=== PATIENT | female | born 1940 | race Caucasian/White ===

== ENCOUNTER 2023-03-26 20:09 | Inpatient (IN) | payer OTHER, SELFPAY ==
[2023-03-26 20:25] VITALS: BP 101/47; PULSE 68; RESP 18; TEMP 36.6; O2SAT 99
[2023-03-26] MEDS: NALOXONE 0.4 MG/ML VIAL IV (21:39)
--- NOTE | 2023-03-26 21:49 | PC.NURSE ---
This nurse entered into patient room to perform admission questions. Patient apeared to be resting peacfully. This nurse made several attempts to waken patient, sternal rub was performed and no response was given from patient. Discussed Narcan for patient to attempt to awaken. Decision to narcan was made. Patient awoke quickly after IV medication was given. Patient was able to recite her name, and current year. Patient however did appear to be stunned looking all around the room at the staff members standing around her.
[2023-03-26 21:56] VITALS: BMI 21.3
--- NOTE | 2023-03-26 22:30 | PC.NURSE ---
Pt. admiited from [facility] via medic. Very sleepy & only opened her eyes for few minutes. When Ulysses admitting RN went to admit her she's not responding to verbal & tactile stimuli ie: vigorous sternal rub, coordinator Rubi RN also did not sternal rub. Admitting RN administered some Narcan. Bed alarm activated, reconciled her home medication through her list from [facility].
--- NOTE | 2023-03-26 23:31 | PM.HP.1 ---
History of Present Illness History of Present Illness Date Patient Seen: 03/26/23 Time Patient Seen: 23:32 Chief complaint: glf, hip fx Narrative: The pt is a 82 yo who has frequent falls at home who fell today , landing on her hip fracturing it. Trena was brought to [facility] for evaluation which I do not have the records available to me. Due to the fracture, she was transfered to our hospital for orthopedic repair. Dr. Silva, ortho is aware of the pt and will see in the AM, we are to keep pt NPO for possible surgery in the AM. The pt was obtunded during my exam and the nurses report that she has been very difficult to arouse since arrival. She is moving her extremities spontaneously but not responding to questions [facility] Social History household members: spouse Smoking Status: Never smoker alcohol intake: never Meds Home Medications and Allergies Home Medications Medication Instructions Recorded Confirmed Type amlodipine 5 mg tablet 5 mg PO DAILY 03/26/23 03/26/23 History aspirin 81 mg tablet 81 mg PO DAILY 03/26/23 03/26/23 History atenolol 25 mg tablet 25 mg PO DAILY 03/26/23 03/26/23 History atorvastatin 80 mg tablet 80 mg PO DAILY 03/26/23 03/26/23 History bupropion HCl 100 mg tablet,12 hr 100 mg PO DAILY 03/26/23 03/26/23 History sustained-release cholecalciferol (vitamin D3) 25 25 mcg PO DAILY 03/26/23 03/26/23 History mcg (1,000 unit) capsule gabapentin 300 mg capsule 300 mg PO TID 03/26/23 03/26/23 History levothyroxine 137 mcg tablet 137 mcg PO DAILY 03/26/23 03/26/23 History lisinopril 5 mg tablet 10 mg PO DAILY 03/26/23 03/26/23 History mirabegron 25 mg PO DAILY 03/26/23 03/26/23 History nitroglycerin 0.4 mg sublingual 0.4 mg sublingual [id number] PRN 03/26/23 03/26/23 History tablet angina oxybutynin chloride 5 mg tablet 5 mg PO DAILY 03/26/23 03/26/23 History tolterodine 1 mg tablet 1 - 2 mg PO BID 03/26/23 03/26/23 History venlafaxine 75 mg tablet 75 mg PO DAILY 03/26/23 03/26/23 History Allergies Allergy/AdvReac Type Severity Reaction Status Date / Time No Known Drug Allergies Allergy Verified 03/26/23 23:04 Exam Vital Signs (past 8 hours): - 03/26/23 20:25 Temperature 97.8 F Pulse Rate 68 Respiratory Rate 18 Blood Pressure 101/47 L Pulse Oximetry 99 Oxygen Flow Rate 2 Oxygen Flow Rate 2 Narrative Exam Narrative: Unresponsive, not verbal not following commands, Resp Other: on 2 lpm via facemask, SaO2-98%, clear breath sounds Cardio Rate: regular rate Rhythm: regular rhythm Skin General: no rashes or lesions noted Assessment & Plan Assessment and plan (1) Hip fracture, intertrochanteric: Status: Acute (2) Metabolic encephalopathy: Status: Acute (3) Falls frequently: Status: Acute (4) HTN (hypertension): Status: Acute Plan WIll admit to the hopsitalist service, IVFluids started, blood sugar is 89, labs pending but ordered, ortho to see the pt in the AM, will need PT/OT post OP plus probably placement. I do not have the records from the previous hospital and the nurse does not know if a CT head was performed, thus one will be ordered. Unknown what her baseline mental status is, re-evaluate in am.
[2023-03-27] VITALS (18 sets, daily range): BP systolic 100–161; BP diastolic 40–70; PULSE 59–75; RESP 10–20; TEMP 36.4–37.5; O2SAT 2–100; BMI 20.6
--- NOTE | 2023-03-27 | DI.RAD.S_ITS ---
PROCEDURE: XR HIP W PEL IF DONE RT 2V INDICATIONS: RT HIP HEMIARTHROPLASTY TECHNIQUE: Single intraoperative fluoroscopic image COMPARISON: None. FINDINGS: Intraoperative fluoroscopic image from right hip arthroplasty IMPRESSION: Intraprocedural fluoroscopy was provided for guidance and anatomical localization. Please see the procedure report for further details. Dictated by: Alexander Nugent M.D. on 03/28/2023 at 0:18 Approved by: Alexander Nugent M.D. on 03/28/2023 at 0:19
[2023-03-27] MEDS: SODIUM CHLORIDE 0.9% 1,000 ML 100 ML IV ×2 (00:06→16:05)
[2023-03-27] MEDS: ACETAMINOPHEN 325 MG TABLET 650 MG PO ×2 (05:03→12:48)
[2023-03-27] MEDS: PANTOPRAZOLE DR 20 MG TABLET PO (05:04)
[2023-03-27 05:48] LABS: Add Manual Diff / Slide Review NO; Basophils Absolute Auto 100 /uL (0-100); Basophils Percent Auto 0.9 % (0-2); Eosinophils Absolute Auto 200 /uL (0-450); Eosinophils Percent Auto 3.4 % (2-4); Hematocrit 29.4 % (36-46); Hemoglobin 9.8 g/dL (12.0-16.0); Lymphocytes Absolute Auto 1400 /uL (1100-4500); Lymphocytes Percent Auto 20.6 % (25-40); Mean Corpuscular HGB Conc 33.3 % (30-36); Mean Corpuscular Hemoglobin 31.5 PG (26-34); Mean Corpuscular Volume 94.7 fL (80-100); Monocytes Absolute Auto 400 /uL (0-900); Monocytes Percent Auto 5.3 % (3-14); Neutrophils Absolute Auto 4900 /uL (1500-7000); Neutrophils Percent Auto 69.8 % (50-75); Platelet Count 186 X10^3/uL (150-400); Red Cell Distribution Width 14.2 % (11.6-14.8)
[2023-03-27 05:59] LABS: BUN Creatinine Ratio 20.5 (6-22); Blood Urea Nitrogen 27 mg/dL (7-17); Calcium 9.2 mg/dL (8.4-10.2); Carbon Dioxide 28 mmol/L (22-32); Chloride 105 mmol/L (98-107); Estimated Glomerular Filt Rate 40 mL/min (>60); Glucose 86 mg/dL (80-110); HEMOLYSIS < 15 (0-50); Potassium 4.6 mmol/L (3.4-5.1); Sodium 135 mmol/L (137-145)
--- NOTE | 2023-03-27 08:38 | PM.PN.1 ---
Subjective Subjective Interval history: Called last night by transferring hospital regarding this patient. She has a valgus impacted right femoral neck fracture which will need to undergo replacement. She is not on any blood thinners so there is no reason from a bleeding perspective that we would need to delay her surgery. Per chart review my presumption is that this will be a hemiarthroplasty rather than a total hip arthroplasty. Operating room space is limited today so I am hopeful I will be able to find time to get this done today and will be by this hospital this afternoon in order to try to make that happen. If unable to move forward with it today I would then work to find time tomorrow. She should remain n.p.o. in the interim. Exam Vital Signs (past 8 hours): - 03/27/23 04:16 Temperature 98.4 F Pulse Rate 65 Respiratory Rate 18 Blood Pressure 112/40 L Pulse Oximetry 98 Oxygen Flow Rate 2 Oxygen Flow Rate 2 Objective Labs 03/27/23 05:15 03/27/23 05:15 Labs: Laboratory Results - last 24 hr 03/27/23 05:15 WBC 7.0 RBC 3.10 L Hgb 9.8 L Hct 29.4 L MCV 94.7 MCH 31.5 MCHC 33.3 RDW 14.2 Plt Count 186 Neut % (Auto) 69.8 Lymph % (Auto) 20.6 L [place] % (Auto) 5.3 Eos % (Auto) 3.4 Baso % (Auto) 0.9 Neut # (Auto) 4900 Lymph # (Auto) 1400 [place] # (Auto) 400 Eos # (Auto) 200 Baso # (Auto) 100 Sodium 135 L Potassium 4.6 Chloride 105 Carbon Dioxide 28 BUN 27 H Creatinine 1.32 H Estimated GFR 40 L BUN/Creatinine Ratio 20.5 Glucose 86 Calcium 9.2 PFSH Social History household members: spouse Smoking Status: Never smoker alcohol intake: never
--- NOTE | 2023-03-27 15:38 | PM.PN.1 ---
Subjective Subjective Interval history: Her confusion has much improved. Bedside nurse said she had some improvement after narcan and then it continued improving throughout the morning. She denies any significant pain, but is confused how she came to the hospital. Family states patient did have a stroke earlier this year. Exam Vital Signs (past 8 hours): - 03/27/23 08:00 03/27/23 09:45 03/27/23 10:21 Temperature 97.5 F L 97.5 F L Pulse Rate 59 L 59 L Respiratory Rate 16 16 Blood Pressure 105/43 L 105/43 L Pulse Oximetry 98 98 Oxygen Delivery Method Nasal Cannula Oxygen Flow Rate 2 2 Oxygen Delivery Method Nasal Cannula Oxygen Flow Rate 2 Narrative Exam Narrative: GEN: no acute distress, confused CV: bradycardic PULM: clear bilaterally ABD: soft, nontender Objective Labs 03/27/23 05:15 03/27/23 05:15 Labs: Laboratory Results - last 24 hr 03/27/23 05:15 WBC 7.0 RBC 3.10 L Hgb 9.8 L Hct 29.4 L MCV 94.7 MCH 31.5 MCHC 33.3 RDW 14.2 Plt Count 186 Neut % (Auto) 69.8 Lymph % (Auto) 20.6 L [place] % (Auto) 5.3 Eos % (Auto) 3.4 Baso % (Auto) 0.9 Neut # (Auto) 4900 Lymph # (Auto) 1400 [place] # (Auto) 400 Eos # (Auto) 200 Baso # (Auto) 100 Sodium 135 L Potassium 4.6 Chloride 105 Carbon Dioxide 28 BUN 27 H Creatinine 1.32 H Estimated GFR 40 L BUN/Creatinine Ratio 20.5 Glucose 86 Calcium 9.2 PFSH Social History household members: spouse Smoking Status: Never smoker alcohol intake: never Assessment & Plan Assessment and plan (1) Hip fracture, intertrochanteric: Status: Acute Plan: NPO for plan for hip repair today 03/27 ortho consulted (2) Metabolic encephalopathy: Status: Acute Plan: improving suspect secondary to pain medication effect as has improved after narcan careful with pain medications (3) Falls frequently: Status: Acute (4) HTN (hypertension): Status: Acute Plan: hold anti-hypertensives for now as patient blood pressure is slightly low ordered IVF bolus Plan History of CVA -continue aspirin and statin after surgery
[2023-03-27] MEDS: LACTATED RINGERS 1,000 ML 1000 ML IV ×2 (16:04→19:00)
--- NOTE | 2023-03-27 19:09 | SUR.HOLD ---
ATIFAR report to Dr Nixon
--- NOTE | 2023-03-27 19:19 | P.CONS_ITS ---
History of Present Illness Consult details Date Patient Seen: 03/27/23 Time Patient Seen: 19:19 Chief complaint: right femoral neck Narrative: Patient is seen this evening in the preoperative holding area. She is planned for a right hip hemiarthroplasty with me this evening. She fell yesterday. She lives on [address]. She lives independently, has a past medical history significant for coronary artery bypass grafting, walks with a cane, and lives with her . She had no antecedent pain. She is complaining of pain in the right hip which localizes to her groin. It is worsened by movement and partially alleviated by rest Meds Home Medications and Allergies Home Medications Medication Instructions Recorded Confirmed Type amlodipine 5 mg tablet 5 mg PO DAILY 03/26/23 03/26/23 History aspirin 81 mg tablet 81 mg PO DAILY 03/26/23 03/26/23 History atenolol 25 mg tablet 25 mg PO DAILY 03/26/23 03/26/23 History atorvastatin 80 mg tablet 80 mg PO DAILY 03/26/23 03/26/23 History bupropion HCl 100 mg tablet,12 hr 100 mg PO DAILY 03/26/23 03/26/23 History sustained-release cholecalciferol (vitamin D3) 25 25 mcg PO DAILY 03/26/23 03/26/23 History mcg (1,000 unit) capsule gabapentin 300 mg capsule 300 mg PO TID 03/26/23 03/26/23 History levothyroxine 137 mcg tablet 137 mcg PO DAILY 03/26/23 03/26/23 History lisinopril 5 mg tablet 10 mg PO DAILY 03/26/23 03/26/23 History mirabegron 25 mg PO DAILY 03/26/23 03/26/23 History nitroglycerin 0.4 mg sublingual 0.4 mg sublingual [id number] PRN 03/26/23 03/26/23 History tablet angina oxybutynin chloride 5 mg tablet 5 mg PO DAILY 03/26/23 03/26/23 History tolterodine 1 mg tablet 1 - 2 mg PO BID 03/26/23 03/26/23 History venlafaxine 75 mg tablet 75 mg PO DAILY 03/26/23 03/26/23 History Allergies Allergy/AdvReac Type Severity Reaction Status Date / Time No Known Drug Allergies Allergy Verified 03/26/23 23:04 Review of Systems Review of Systems ROS: Yes All systems reviewed with the patient and are negative except as otherwise documented Exam Vital Signs (past 8 hours): - 03/27/23 16:00 03/27/23 19:08 Temperature 97.6 F 97.8 F Pulse Rate 63 75 Respiratory Rate 16 16 Blood Pressure 118/52 L 132/63 Pulse Oximetry 94 93 Oxygen Delivery Method Oximask Oxygen Flow Rate 2 Oxygen Delivery Method Oximask Oxygen Flow Rate 2 Narrative Exam Narrative: Right lower extremity exam: Tender to palpation around the hip. Ecchymosis present around the hip. Sensation intact to light touch in L2 through S1 nerve distributions. Toes are warm and well perfused. Palpable DP pulse. Const General: cooperative Orientation: alert and awake HENMT Head: normal to inspection Ears: hearing grossly normal bilaterally Eyes General: appearance normal, both eyes and all related structures Neck Neck: normal visual inspection Resp Effort & Inspection: normal respiratory effort and able to speak in complete sentences Cardio Pulses: other (peripheral pulses present) Skin Lesions: no lesions Rashes: no rashes Neuro General: patient alert, patient awake and moves all extremities Psych Appearance: grossly normal Objective Imaging Right hip x-ray: My impression: Right hip radiographs were sent to me personally by the consulting physician from [facility]. This demonstrates a valgus impacted right femoral neck fracture. These images have not been pushed through to the [employer] PACS system however I have them personally Labs 03/27/23 05:15 03/27/23 05:15 Labs: Laboratory Results - last 24 hr 03/27/23 05:15 WBC 7.0 RBC 3.10 L Hgb 9.8 L Hct 29.4 L MCV 94.7 MCH 31.5 MCHC 33.3 RDW 14.2 Plt Count 186 Neut % (Auto) 69.8 Lymph % (Auto) 20.6 L [place] % (Auto) 5.3 Eos % (Auto) 3.4 Baso % (Auto) 0.9 Neut # (Auto) 4900 Lymph # (Auto) 1400 [place] # (Auto) 400 Eos # (Auto) 200 Baso # (Auto) 100 Sodium 135 L Potassium 4.6 Chloride 105 Carbon Dioxide 28 BUN 27 H Creatinine 1.32 H Estimated GFR 40 L BUN/Creatinine Ratio 20.5 Glucose 86 Calcium 9.2 PFSH Social History household members: spouse Tobacco & Substance Use Smoking Status: Never smoker alcohol intake: never Assessment & Plan Assessment and plan (1) Hip fracture, intertrochanteric: Status: Acute Plan 1. Right hip hemiarthroplasty with me today. Patient uses ambulatory aids and has a past medical history significant for myocardial infarction. I therefore believe she is appropriate for hemiarthroplasty. Additionally she has a history of a spine fusion and the large head of the hemiarthroplasty will provide greater stability then a total hip arthroplasty. 2. Plan for weight-bearing as tolerated postoperatively with aspirin DVT prophylaxis
[2023-03-27] MEDS: CEFAZOLIN 2 GM/100 ML PREMIX 100 ML IV ×2 (19:55→23:29)
--- NOTE | 2023-03-27 20:31 | SUR.OPER ---
Supine on padded [place] table with bilateral legs secured in padded positioning boots and suspended in positioning spars, operative leg in traction per surgeon. Head on one pillow. Arms secured on padded armboard <90 degrees abduction. Padded perineal post in place per surgeon.
[2023-03-27] MEDS: TRANEXAMIC ACID 1,000 MG VIAL 2000 MG INJ ×2 (20:51→21:42)
[2023-03-27] MEDS: EPINEPHrine 1 MG/ML TOP (21:17)
[2023-03-27] MEDS: ROPIVACAINE/EPI/CLONIDINE/KET 50 ML SYRINGE INJ (21:44)
--- NOTE | 2023-03-27 22:13 | P.OP_ITS ---
Operative Date/Time/Diagnoses Date of procedure: 03/27/23 Time of procedure: 16:30 Pre-op diagnosis: Displaced right femoral neck fracture Post-op diagnosis: same Procedure & Clinicians Procedure: Right hip hemiarthroplasty Same procedure as scheduled: Yes Surgeon: Roland Silva Click Yes if Unassisted: Yes Anesthesia Type: General and Local Operative Notes Findings: Right femoral neck fracture Prosthetic devices, grafts, tissues, transplants, or devices: Depuy Size 1 SO Cemented C Stem with 45 mm -3 Unipolar Head Estimated Blood Loss (mL): 200 Blood products transfused: none Procedure in detail: This 82-year-old female patient presented to an outside hospital with a displaced valgus impacted right femoral neck fracture. She was transferred here for definitive management. I met with the patient and discussed options. I felt that with her medical history significant for a coronary artery bypass grafting, her advanced age and frailty, and her use of ambulatory aids she was an appropriate candidate for a hemiarthroplasty. She was marked and informed consent was obtained prior to moving to the operating room. The images of the hip demonstrating the right femoral neck fracture had not been pushed to our system so when she was taken back to the operating room I had our fluoroscopy technicians obtain an AP pelvis demonstrating a femoral neck fracture on the right side so that we can ensure we were operating on the correct extremity. The consent stated that the right side was to be operated on, the right extremity was marked, she complained of pain in her right side, and the fluoroscopy images demonstrated a right-sided femoral neck fracture prior to the procedure beginning. Ancef and tranexamic acid were administered. A time-out procedure was performed verifying the correct patient operative site medications to be administered allergies and comorbidities. She was prepped and draped in the usual sterile fashion on the [place] table with her arms free and all bony prominences padded. A direct anterior approach to the hip was utilized. The TFL fascia was incised and opened with an Allis clamp. Cobra retractors were placed on the inferior and superior femoral neck. The lateral circumflex vessels were tensioned and coagulated. A capsulotomy was made being careful to protect the labrum. Tag stitches were placed and a soft tissue protector was placed over the tag stitches. The the retractors were placed intracapsularly and the capsular incision was extended down to the lesser trochanter. I estimated an appropriate neck cut and made a neck cut with a saw. The fracture fragments proximal to my cut site were removed and the femoral head was removed as well. The femoral head was measured at 45 mm. A head trial was introduced into the [place] acetabulum and was appropriate. All bony debris was removed. A [place] hook was placed in the lateral femur and used to elevate. A Hohmann retractor was placed over the greater trochanter and the lateral capsule was released over to the piriformis fossa with the hip in neutral flexion. While using the [place] hook to pull the greater trochanter out from behind the posterior wall I then rotated out to 90? and the foot was extended and adducted. Retractors were placed over the greater trochanter and the calcar. An additional release of the conjoined tendon was performed. The hip was externally rotated to 140? and elevated. Lynn and an opening broach and a rasp were used to gain access to the diaphys is. A size 1 broach for the C stem was placed and noted to have an appropriate fit. I placed a neutral head on the size 1 standard broach and removed all of the retractors and reduced the hip. At this time it was noted to be long on an AP pelvis as well as having excessive offset on the AP pelvis. I therefore planned to downsized to a-3 head and sink the stem in order to reduced both my offset and my length. Returning to the broaching position I replaced all the retractors and irrigated the canal. I placed a cement restrictor down to an appropriate depth. I again irrigated the canal. I placed epinephrine-soaked vaginal packing in the canal. I placed a whistle-tip catheter attached to suction down the canal as well. Cement was introduced and the catheter was removed. I digitally impacted the cement down the femur. I used a cement hemmer lockstitch to further pressurize the cement. The size 1 standard offset stem was placed in the cement and pushed down to the top line of the 3 lines on the stem in order to shorten our construct relative to our broach position. The cement was allowed to dry. A - 3 45 mm unipolar head was impacted onto a clean dry trunnion after it had been washed and dried. This was stable. All retractors were removed and the hip was reduced. The hip was maximally externally rotated and noted be stable. The hip was put in 45? of external rotation and dropped to the floor and likewise noted to be stable. Fluoroscopy was obtained demonstrating appropriate length and offset. AP hip fluoroscopy was obtained demonstrating an appropriate fit of the stem in the cement total. The wound was soaked in Betadine. A mixture of ropivacaine epinephrine clonidine and Toradol was infiltrated throughout the wound. The wound was closed using Vicryl Quill and Monocryl. Dermabond was applied an Aquacel dressing was applied over that. The patient was awoken from anesthesia after being transferred off of the [place] table and brought to the PACU where she awoke without complication. Post-operative Plan for aftercare: Weightbearing as tolerated Multimodal pain regimen Aspirin DVT prophylaxis Follow up outpatient in our clinic in 2 weeks for a wound check
--- NOTE | 2023-03-27 22:18 | SUR.PHASEI ---
See new order for IV Tylenol as pt did not receive 1800 dose and goal to avoid IV narcotics in PACU.
[2023-03-27] MEDS: ACETAMINOPHEN IV 1,000 MG/100 ML VIAL 400 MG IV (22:33)
[2023-03-27] MEDS: LACTATED RINGERS 1,000 ML 42 ML IV (22:37)
--- NOTE | 2023-03-27 23:04 | SUR.PHASEI ---
Pt transfered to room 219 in bed on 2L oxygen by this RN. Pupils remain reactive to light and un changed, viewed in SBAR handover with Letha CUELLAR. Pt, who remember my name, stated that oh my eyes always look different Neuro status unchanged.
--- NOTE | 2023-03-27 23:06 | SUR.PHASEI ---
2034 Noted that patient pupils slightly different in size with left greater than right. Both reactive to light direct and indirect. Pt evaluated by both Dr Nixon and Dr Curran. Pt with intact neuro status with smile, sticking out tongue, shoulder shrug, equal strength to hands, pt oriented to person and place, situation. No new orders at this time.
[2023-03-27] MEDS: LACTATED RINGERS 1,000 ML 100 ML IV (23:31)
[2023-03-28] VITALS (8 sets, daily range): BP systolic 102–138; BP diastolic 41–64; PULSE 62–75; RESP 16–18; TEMP 36.4–36.8; O2SAT 92–100
[2023-03-28] MEDS: PANTOPRAZOLE DR 20 MG TABLET PO (05:09)
[2023-03-28] MEDS: ACETAMINOPHEN 325 MG TABLET 650 MG PO ×4 (05:09→23:35)
--- NOTE | 2023-03-28 05:13 | CM.DANOTE ---
Initial DCP Assessment Note Pt is an 82 yo female, resident of [place], arrives after fall at home w/subsequent hip fx. Patient scheduled for hip repair with Dr Silva PCP: Unknown Payer: HARJIT GONZALES Met w/patient and her spouse at bedside to introduce self and role. Patient is A+Ox4, lives w.spouse, had been independent and active before recently having a stroke. Patent uses a cane or walker in the house, spouse drives. Three adult children live in [place] and are encouraging us to move closer to them. Patient says spouse is able to help with higher ADLs although he is getting more unsteady on his feet lately. No hx of HH or SNF. Reviewed the likelihood that therapies will recommend SNF after this hip repair, reviewed process for obtaining a SNF and requesting authorization from [facility] and patient/spouse stated understanding. Patient appreciative of the visit and would like to discuss discharge options further after surgery and once therapies make their recommendations. CM team will plan to follow closely for assessment of need and coordination for DCP. SCOTT Delgado Discharge Planning/Care Management CM Discharge Assessment Start: 03/27/23 16:01 Freq: Status: Active Protocol: Document 03/28/23 05:10 EVELINE (Rec: 03/28/23 05:13 EVELINE [id number]) Discharge Planning Assessment Assigned Companion SCOTT Thibodeaux DPOA/Assigned Designee Name Darrell Guevara spouse Contact Information [phone] Advance Directives? Yes Advance Directives on File No History Provided By Patient,Significant Other Prior Living Arrangements House Household Members spouse Type of transporation used prior to Relies on Others admit Independent with ADL's No: Prior CVA, spouse assists w/higher ADLs Is patient alert and oriented? Yes Needs Assistance With Meal Prep,Home Chores / Shopping Patient/Family Preference [facility] Facility Barriers to Discharge Yes Comment Patient is fragile at baseline , spouse also getting unsteady per patient report. Son flying in from [place] soon to support patient and spouse Discharge Plan [facility] Facility Additional Comment Anticipate SNF upon discharge, need to reassess needs s/p hip repair
[2023-03-28 06:10] LABS: Hematocrit 25.3 % (36-46); Hemoglobin 8.5 g/dL (12.0-16.0)
[2023-03-28] MEDS: CEFAZOLIN 2 GM/100 ML PREMIX 100 ML IV (06:21)
--- NOTE | 2023-03-28 07:31 | PM.PNPO.1 ---
Subjective Subjective Date Patient Seen: 03/28/23 Time Patient Seen: 07:32 Interval history: Patient states she was having some hallucinations last night and did not sleep well. Patient feeling better this morning. No nausea or vomiting. No fever or chills. Patient has her home to assist her. Exam Vital Signs (past 8 hours): - 03/27/23 23:35 03/28/23 00:00 03/28/23 00:05 Temperature Pulse Rate 68 63 Respiratory Rate Blood Pressure 139/55 L 138/56 L Pulse Oximetry 100 96 Oxygen Delivery Method Nasal Cannula Oxygen Flow Rate 0 0 03/28/23 01:05 03/28/23 03:00 Temperature 98.3 F Pulse Rate 62 66 Respiratory Rate 17 17 Blood Pressure 102/52 L 103/44 L Pulse Oximetry 98 100 Oxygen Delivery Method Oxygen Flow Rate 2 2 Oxygen Delivery Method Nasal Cannula Oxygen Flow Rate 2 Narrative Exam Narrative: 82-year-old female resting comfortably in bed in no apparent distress. Dressing is clean, dry and intact. Motor functions intact bilateral lower extremities. Sensation grossly intact to light touch bilateral lower extremities. Const General: cooperative and comfortable Orientation: alert and oriented x3 Resp Effort & Inspection: normal respiratory effort and able to speak in complete sentences Objective Labs 03/28/23 05:00 03/27/23 05:15 Labs: Laboratory Results - last 24 hr 03/28/23 05:00 Hgb 8.5 L Hct 25.3 L PFSH Social History household members: spouse Smoking Status: Never smoker alcohol intake: never Assessment & Plan Post-op Postoperative Procedures: Procedures Operation Date: 03/27/23 22:15 Actual Procedure Side Surgeon p Hip Hemiarthroplasty Right Roland Silva MD Postoperative day: 1 Postoperative status: doing well and anemia Postoperative status narrative: Stable status post right hip hemiarthroplasty Anemia due to acute blood loss during surgery Postoperative plan: routine post-op care Postoperative plan narrative: Mobilize with physical therapy, weight-bearing as tolerated Multimodal pain management Aspirin for DVT prophylaxis Follow up ortho 2 weeks for wound check Disposition likely home today or tomorrow
[2023-03-28] MEDS: DOCUSATE 100 MG CAPSULE PO ×2 (09:36→21:11)
[2023-03-28] MEDS: VENLAFAXINE 37.5 MG TABLET 75 MG PO (09:36)
[2023-03-28] MEDS: ASPIRIN EC 81 MG TABLET PO ×2 (09:36→21:11)
[2023-03-28] MEDS: LEVOTHYROXINE 137 MCG TABLET PO (09:36)
[2023-03-28] MEDS: ATORVASTATIN 20 MG TABLET 80 MG PO (09:36)
[2023-03-28] MEDS: buPROPion SR 100 MG TAB PO (09:36)
[2023-03-28] MEDS: ENOXAPARIN 30 MG/0.3 ML SYRINGE SUBCUT (09:36)
--- NOTE | 2023-03-28 11:21 | PT.IIE ---
Current Diagnoses Metabolic encephalopathy (03/26/23) Essential (primary) hypertension (03/26/23) Repeated falls (03/26/23) Displaced intertrochanteric fracture of unspecified femur, initial encounter for closed fracture (03/26/23) Surgery Performed Operation Date: 03/27/23 22:15 Actual Procedures p Hip Hemiarthroplasty(Right) - Roland Silva MD Physical Therapy Inpatient Evaluation/Re-Eval M1 PT/OT-IP Prior Functional Status Start: 03/28/23 08:15 Freq: NEEDED Status: Active Protocol: Document 03/28/23 10:55 MB (Rec: 03/28/23 11:21 MB [id number]) Medical Review Prior Functional Status Medical History Reviewed Yes Diet/Fluid Consistency Regular Communication Unsure how pt's baseline communication is, she is somewhat confused on the eval Mobility and Gait Unclear, pt states she used cane and walker Activities of Daily Living and IADL's Unclear if pt's spouse assisted her at baseline or not Social History Household Members spouse Living Arrangements House Number of Floors (Floors) One Floor Number of Stairs To Enter/Railing? Unclear, it appears that there are at least a couple of steps and rail to enter home Home Equipment Front Wheel Walker,Four Wheel Walker,Straight Cane Employment Status Retired Additional Social History Comment Pt is not an accurate historian and so unclear if PLOF is accurate M2 PT-IP Current Condition Start: 03/28/23 08:15 Freq: NEEDED Status: Active Protocol: Document 03/28/23 10:55 MB (Rec: 03/28/23 11:21 MB [id number]) Physical Therapy Current Condition Current Condition Evaluation Date 03/28/23 Treatment Diagnosis GLF, right femoral neck fracture s/p anterior hemiarthroplasty Onset Date 03/27/23 M3 PT-IP Subjective Start: 03/28/23 08:15 Freq: NEEDED Status: Active Protocol: Document 03/28/23 10:55 MB (Rec: 03/28/23 11:21 MB [id number]) Subjective Physical Therapy Visit Type Type Initial Evaluation Visit Start Time 10:15 Visit Stop Time 10:55 Total Visit Minutes 40 Number of LUBRICATION WORKER Visits 0 Physical Therapy Visit Comments Patient Comments I didn't sleep last night. I had a horror film going through my mind. Therapy Pain Assessment Pain When Pain Assessed At Rest Pain Present Pain Present Pain Reported Location Right Hip Intensity 4 Scale Used Mcfadden-Barr (Faces) Description Acute Pain Behaviors Guarding Pain Management Techniques Modification of Treatment,Re- positioning M4 PT-IP Mobility and Gait Start: 03/28/23 08:15 Freq: NEEDED Status: Active Protocol: Document 03/28/23 10:55 MB (Rec: 03/28/23 11:21 MB [id number]) PT-Bed Mobility Assessment Rolling Type of Rolling Roll to Right Level of Assist Minimal Assistance,1 Person Assistance Supine to Sit Supine to Sit Moderate Assistance,1 Person Assistance,Head of Bed Elevated,Bedrails Sit to Supine Sit to Supine Maximum Assistance,1 Person Assistance,Head of Bed Elevated,Bedrails Scooting Scooting to Edge of Bed Contact Guard Assistance PT-Transfer Assessment Sit to and From Stand Sit to and from Stand Minimal Assistance,1 Person Assistance,Use of Upper Extremities Equipment Transfer Assistive Device Gait Belt,Front Wheeled Walker Orthotic/Prosthetic Devices or Brace: No Comments Mobility Comments Pt presents with confusion this morning and when sitting back down on the bed, asks if she is sitting on a bar and points to right hip. She requires cues and assistance for bed mobility. Surgeon enters during treatment to check right surgical wound and it has some bleeding and surgical PA to address later. Surgeon confirms anterior hip precautions and states that if pt cannot remember, it is not a big concern for her progression and mobility. Pt is having cognitive challenges this a.m. Gait Assessment Gait Gait Assistance Required: Moderate Assistance,1 Person Assist Distance (Feet) 2 Able to Maintain Weight Bearing Status Yes During Gait Assistive Devices Assistive Device Gait Belt,Standard Walker Orthotic/Prosthetic Devices or Brace: No Gait Deviations General Gait Pattern Antalgic,Decreased Stride Length,Decreased Feet Clearance,Flexed Trunk Factors Limiting Gait Function Factors Limiting Gait Function Decreased Activity Tolerance, Decreased Strength,Difficulty Following Directions,Limited Range of Motion,Pain,Poor Balance,Poor Safety Awareness Comments Gait Comments Pt takes a few steps to the right with PT with SW and PT must assist with moving the walker. PT obtains RW for the room after assessment. PT-Balance Assessment Sitting Balance and Reactions Static Sitting Balance Ability Fair Dynamic Sitting Balance Ability Fair Standing Balance and Reactions Static Standing Balance Ability Fair Dynamic Standing Balance Ability Fair Device Used SW M5 PT-IP Objective Assessments Start: 03/28/23 08:15 Freq: NEEDED Status: Active Protocol: Document 03/28/23 10:55 MB (Rec: 03/28/23 11:21 MB [id number]) Orientation Orientation/Cognition Level of Alertness Confusional State Orientation Name,Age,Birthday,Month,Year, Place,Situation Language Function Ability No Deficits Noted Safety Awareness Decreased Safety Awareness Memory Description Short Term Impaired,Detention Impaired Gross Range of Motion Upper Extremity ROM Impairments Defer to OT Lower Extremity ROM Assessment Right Impaired Impairments Pt does not follow right LE range and strength testing commands Strength Lower Extremity Strength Assessment Right Impaired Comments Strength Comments Pt with functional weakness right LE and she does not follow testing commands today. She is able to stand and take a few side steps with assistance on eval Sensation Assessment Sensation Gross Sensation WNL Comments Sensation Comments Pt cannot tolerate formal testing Muscle Tone Muscle Tone WNL Yes M6 PT-IP Treatment Start: 03/28/23 08:15 Freq: NEEDED Status: Active Protocol: Document 03/28/23 10:55 MB (Rec: 03/28/23 11:21 MB [id number]) Physical Therapy Treatment Education Education Provided Precautions,Weight Bearing Status,Post-Op Packet,Safety Other Treatments Other Treatment Performed PT attempts to educate pt in precautions and she has trouble understanding them today. Focused on mobility this a.m. and getting pt back into bed to rest and for PA to address her surgical dressing . BP does not drop with mobility and she presents with the following BP and HR in right UE: supine 109/47, 65; sitting 118/53, 74; sitting again after standing 124/49, 75. Pt reports some dizziness but she cannot describe further and cannot understand PT education about this. Her O2 sats do not read accurately with pulse ox on toe (note that IVCC booties also on both limbs). Pt is on 1L O2 and she has no THURSTON. M7 PT-IP Assessment and Plan Start: 03/28/23 08:15 Freq: NEEDED Status: Active Protocol: Document 03/28/23 10:55 MB (Rec: 03/28/23 11:21 MB [id number]) PT Summary Assessment and Plan Potential Rehabilitation Potential Good Status of Condition at Evaluation Evolving Summary Impairments Pain,ROM,Strength,Balance, Cognition,Bed Mobility, Transfers,Gait,Activity Tolerance Progress Towards Goals Slow Progress due to Activity Tolerance Assessment Summary Pt is a pleasant lady who is participatory despite cognitive challenges today. She is not able to express her symptoms of dizziness well when she tries and her BP does not drop when PT checks it. She does not c/o pain but communicates sitting on a bar when getting back into bed: she has decreased recall of the hip fracture and surgery despite education and surgeon visit during treatment. Surgical wound has some bleeding and surgical PA to address later. Surgeon confirms anterior hip precautions and states that if pt cannot remember, it is not a big concern for her progression and mobility. Pt requires assistance for all mobility tasks and will benefit from PT to improve bed mobility, transfers and gait. Unsure how much help her elderly spouse is able to provide at home and so will recommend d/c to SNF at this time. Goals Bed Mobility Goal Standby Assistance Transfer Goal Standby Assistance,Front Wheeled Walker Gait Goal Standby Assistance,Front Wheel Walker Gait Distance 100 Other Goals Pt will ascend and descend at least 3 steps with rail and no more than SBA to allow home entrance. Days to Meet Goals 5 Frequency of Treatment Frequency Of Treatment Twice a Day Treatment Plan Physical Therapy Treatment Plan Bed Mobility Training,Transfer Training,Gait Training, Therapeutic Exercise,Balance Retraining,Post Op Education, Discharge Planning,Hot or Cold Pack Precautions Anterior Hip Precautions No Hip Extension,No Hip External Rotation Weight Bearing Status Weight Bearing Status Weight Bear as Tolerated Recommendations To Nursing Amount of Assist Needed 1 Person Assist Discharge Recommendations PT Discharge Recommendations SNF Rehab Transportation Needs at Discharge Wheelchair/Cabulance
--- NOTE | 2023-03-28 11:59 | PM.PN.1 ---
Subjective Subjective Interval history: Some hallucinations over night. No chest pain or dyspnea. Some hip pain. Exam Vital Signs (past 8 hours): - 03/28/23 09:04 Temperature 98.3 F Pulse Rate 62 Respiratory Rate 16 Blood Pressure 105/53 L Pulse Oximetry 95 Oxygen Flow Rate 2 Oxygen Delivery Method Nasal Cannula Oxygen Flow Rate 2 Narrative Exam Narrative: NAD, anxious. Lungs clear with normal effort CV RRR without M/G/R Abdomen Soft, NT/ND No rash No leg edema Objective Labs 03/28/23 05:00 03/27/23 05:15 Labs: Laboratory Results - last 24 hr 03/28/23 05:00 Hgb 8.5 L Hct 25.3 L PFSH Social History household members: spouse Smoking Status: Never smoker alcohol intake: never Assessment & Plan Assessment & Plan narrative: 1) Right Hip fracture, intertrochanteric, POA: Status: Acute -s/p ORIF, PT today. Discharge planning. ortho consulted (2) Metabolic encephalopathy, POA and improving: -suspect secondary to pain medication effect as has improved after narcan -minimize pain medications (3) Falls frequently: Status: Acute (4) HTN (hypertension), POA: Status: Acute Plan: hold anti-hypertensives for now as patient blood pressure is slightly low resume BP medications as able. (5) Chronic vertigo, POA (6) Chronic Vertigo, POA Plan History of CVA -continue aspirin and statin after surgery -PT/OT -SNF planning. Met with . Time Spent With Patient Time with patient: 30 to 49 minutes with 50% spent counseling/coordinating care
--- NOTE | 2023-03-28 12:45 | OT.IP.EVAL ---
Current Diagnoses Metabolic encephalopathy (03/26/23) Essential (primary) hypertension (03/26/23) Repeated falls (03/26/23) Displaced intertrochanteric fracture of unspecified femur, initial encounter for closed fracture (03/26/23) Surgery Performed Operation Date: 03/27/23 22:15 Actual Procedures p Hip Hemiarthroplasty(Right) - Roland Silva MD Occupational Therapy Inpatient Evaluation/Re-Eval M1 PT/OT-IP Prior Functional Status Start: 03/28/23 16:43 Freq: NEEDED Status: Active Protocol: Document 03/28/23 11:45 [facility] (Rec: 03/28/23 17:03 [facility] [id number]) Medical Review Prior Functional Status Medical History Reviewed Yes Diet/Fluid Consistency Regular Communication Pt's states pt is a bit forgetful at times and that she does all the IADL needs, Mobility and Gait Unclear, pt states she used cane and walker Activities of Daily Living and IADL's Pt's does all the IADL needs. Social History Household Members spouse Living Arrangements House Number of Floors (Floors) One Floor Number of Stairs To Enter/Railing? 3 steps with left rail Home Environment Walk in Shower Home Equipment Front Wheel Walker,Straight Cane,Hand Held Shower,Grab Bars In Shower Employment Status Retired Additional Social History Comment Pt and her state there son wants them to move to [place] to be closer to him. M2 OT-IP Current Condition Start: 03/28/23 16:43 Freq: Status: Active Protocol: Document 03/28/23 11:45 [facility] (Rec: 03/28/23 17:03 [facility] [id number]) Occupational Therapy Current Condition Current Condition Evaluation Date 03/28/23 Treatment Diagnosis S/P R FEDE Diagnosis Onset Date 03/27/23 Post Operative Precautions Anterior Hip Precautions No Hip Extension,No Hip External Rotation Other Precautions Per surgeon told PT that if is not a big deal if the pt is unable to remember her anterior precautions. Weight Bearing Status Weight Bearing Status Weight Bear as Tolerated M3 OT- IP Subjective and Pain Start: 03/28/23 16:43 Freq: Status: Active Protocol: Document 03/28/23 11:45 [facility] (Rec: 03/28/23 17:03 [facility] [id number]) OT- Subjective Occupational Therapy Visit Type Type Initial Evaluation Visit Start Time 11:45 Visit Stop Time 12:45 Total Visit Minutes 60 Occupational Therapy Visit Comments Patient Comments Pt agreed to get up. Patient/Caregiver Goals To go home OT Pain Assessment Pain When Pain Assessed At Rest Pain Present Pain Present Denied Pain M4 OT- IP ADL's Start: 03/28/23 16:43 Freq: Status: Active Protocol: Document 03/28/23 11:45 [facility] (Rec: 03/28/23 17:03 [facility] [id number]) OT [id number] General Evaluation Self-Feeding Ability Independent OT ADL-Grooming Comments OT Grooming Comments NOt performed. OT ADL-Oral Care Comments Oral Care Comments Not performed. OT ADL-Dressing General Eval Lower Body Dressing Ability Moderate Assistance Comments OT Dressing Comments Assist to help caro her right sock. OT ADL-Toileting Comments OT Toileting Comments Pt not having to use the bathroom at this time. OT ADL-Bathing Comments OT Bathing Comments Pt would benefit from a shower chair. M5 OT- IP IADL's Start: 03/28/23 16:43 Freq: Status: Active Protocol: Document 03/28/23 11:45 [facility] (Rec: 03/28/23 17:03 [facility] [id number]) OT-Instrumental Activities of Daily Living Deficits IADL Deficits Identified Deficits Home Safety Awareness Awareness of Need for Assistance at Home Decreased Awareness Medication Management Medication Management Caregiver Administers Money Management Money Management Caregiver Provides Assistance Meal Preparation Meal Preparation Caregiver Provides Assist Slitting Machine Operator Helper Slitting Machine Operator Helper Caregiver Provides Assist M6 OT- IP Functional Cognition Start: 03/28/23 16:43 Freq: Status: Active Protocol: Document 03/28/23 11:45 [facility] (Rec: 03/28/23 17:03 [facility] [id number]) Cognitive Factors Limiting Selfcare Function Cognitive Ability Level of Alertness Alert Patient Orientation Name,Place,Situation Attention Span Ability Capable of Focused Attention, Capable of Sustained Attention Ability to Follow Commands Able to Follow One Step Commands with Increased Time, Able to Follow One Step Commands with Repetition Memory Description Short Term Impaired Safety Awareness Decreased Recall of Precautions,Decreased Ability to Apply Precautions, Underestimates Need for Assistance Cognitive Comments Cognitive Assessment Comments Pt not aware of her hip precautions. Pt needing simple cues to follow. Pt needing cues for FWW safety. OT- Vision and Hearing OT- Vision Assessment Visual Acuity Glasses All The Time M7 OT- IP Mobility and Balance Start: 03/28/23 16:43 Freq: Status: Active Protocol: Document 03/28/23 11:45 [facility] (Rec: 03/28/23 17:03 [facility] [id number]) OT- Bed Mobility Assessment Supine to Sit Supine to Sit Assist Minimal Assistance OT-Transfer Assessment Sit to and From Stand Sit to and from Stand Contact Guard Assistance Transfers Transfer Ability Contact Guard Assistance Technique Transfer Destination Bed,Chair Transfer Technique Stand Step Pivot Devices Transfer Assistive Devices Gait Belt,Front Wheeled Walker Comments Mobility Comments LUIS to assist to get her RLE out of the bed. CGA to stand , vc to push up from the bed versus grab the FWW to stand. CGA to walk to the recliner with FWW. OT- Balance Assessment Sitting Balance and Reactions Static Sitting Balance Ability Good Dynamic Sitting Balance Ability Fair Standing Balance and Reactions Static Standing Balance Ability Fair Dynamic Standing Balance Ability Fair M8 OT- IP Objective Assessments Start: 03/28/23 16:43 Freq: Status: Active Protocol: Document 03/28/23 11:45 [facility] (Rec: 03/28/23 17:03 [facility] [id number]) OT Gross Range of Motion Upper Extremity Range of Motion ROM Impairments WFL for ADl and mobility needs . OT Strength Comments Strength Comments WFl for age and lifestyle M9 OT- IP Assessment and Plan Start: 03/28/23 16:43 Freq: Status: Active Protocol: Document 03/28/23 11:45 [facility] (Rec: 03/28/23 17:03 [facility] [id number]) OT Summary Assessment and Plan Potential Rehabilitation Potential Good Analytic Complexity at Evaluation Moderate Summary OT Impairments Pain,Strength,Balance, Functional Cognition, Functional Mobility,Grooming, Dressing,Toileting,Bathing, Toilet Transfers,Shower Transfers,Activity Tolerance Progress Towards Goals Progressing Toward Goals,Slow Progress due to Activity Tolerance,Slow Progress due to Cognition Assessment Summary Pt MOD complexity and main barriers are steps, pt's unsteady on his feet and almost lost his balance while standing up from the recliner, and decreased balance and activity tolerance . Pt on 2L of O2 but reading not accurate, nursing aware. Per pt has had recent falls. In would be best for pt to go to skilled rehab for a short stay prior to going home . Goals Self-Feeding Goal Independent Grooming Goal Independent Dressing Goal Independent Toileting Goal Independent Bathing Goal Independent Toilet Transfer Goal Independent Shower Transfer Goal Independent Days to Meet Goals 10 Frequency of Treatment Frequency Of Treatment Once a Day Treatment Plan OT Treatment Plan ADL Training,Functional Cognition Training,Functional Mobility,Patient/Family Education,Discharge Planning Other Treatment Recommendations and Next LB dressing/shower Treatment Focus Discharge Recommendations OT Discharge Recommendations SNF Rehab Home Equipment Needs shower chair, BSC, LB dressing equipment Transportation Needs at Discharge Wheelchair/Cabulance
--- NOTE | 2023-03-28 14:28 | CM.DPC ---
DCP Cont. Reviewed EMR and team rounds for status updates. Plan for d/c continues to be SNF. Clarify pt/family preference for which facility. PASSAR not yet completed. [employer] Medicare is insurance. DCP to continue to coordinate for rehab placement.
--- NOTE | 2023-03-28 15:50 | PT.IPTN ---
Current Diagnoses Metabolic encephalopathy (03/26/23) Essential (primary) hypertension (03/26/23) Repeated falls (03/26/23) Displaced intertrochanteric fracture of unspecified femur, initial encounter for closed fracture (03/26/23) Surgery Performed Operation Date: 03/27/23 22:15 Actual Procedures p Hip Hemiarthroplasty(Right) - Roland Silva MD Physical Therapy Treatment Note M2 PT-IP Current Condition Start: 03/28/23 08:15 Freq: NEEDED Status: Active Protocol: Document 03/28/23 10:55 MB (Rec: 03/28/23 11:21 MB [id number]) Physical Therapy Current Condition Current Condition Evaluation Date 03/28/23 Treatment Diagnosis GLF, right femoral neck fracture s/p anterior hemiarthroplasty Onset Date 03/27/23 M3 PT-IP Subjective Start: 03/28/23 08:15 Freq: NEEDED Status: Active Protocol: Document 03/28/23 16:27 TS (Rec: 03/28/23 16:50 TS [id number]) Subjective Physical Therapy Visit Type Type Treatment Note Visit Start Time 15:50 Visit Stop Time 16:25 Total Visit Minutes 35 Notes Spouse present. Number of MEDICAL CENTER MANAGER Visits 1 Physical Therapy Visit Comments Patient Comments Pt is somewhat confused, is tangential, reports she is feeling better this afternoon, is agreeable to PT. Therapy Pain Assessment Pain When Pain Assessed At Rest Pain Present Pain Present Pain Reported M4 PT-IP Mobility and Gait Start: 03/28/23 08:15 Freq: NEEDED Status: Active Protocol: Document 03/28/23 16:27 TS (Rec: 03/28/23 16:50 TS [id number]) PT-Bed Mobility Assessment Supine to Sit Supine to Sit Minimal Assistance,1 Person Assistance,Head of Bed Elevated Scooting Scooting to Edge of Bed Contact Guard Assistance PT-Transfer Assessment Sit to and From Stand Sit to and from Stand Contact Guard Assistance,1 Person Assistance,Use of Upper Extremities Equipment Transfer Assistive Device Gait Belt,Front Wheeled Walker Orthotic/Prosthetic Devices or Brace: No Comments Mobility Comments Pt found resting in bed, agreeable to PT. Supine to sit Neetu with HOB elevated and BUE support to upright trunk. She scooted to EOB CGA with cues for feet flat on floor, pt was impulsive to stand once sitting EOB, required cues to stay seated. Sit to stand with BUE support on FWW CGA, pt has good standing balance with no retroleaning. She ambulated ~100' CGA with FWW with a step to gait, pt reported feeling fatigue after ~60' of gait, pt requested to sit in chair. She denied any dizziness or lightheadedness. Pt was left in chair with nursing removing catheter. Gait Assessment Gait Gait Assistance Required: Moderate Assistance,1 Person Assist Distance (Feet) 100 Able to Maintain Weight Bearing Status Yes During Gait Assistive Devices Assistive Device Gait Belt,Standard Walker Orthotic/Prosthetic Devices or Brace: No Gait Deviations General Gait Pattern Antalgic,Decreased Stride Length,Decreased Feet Clearance,Flexed Trunk Factors Limiting Gait Function Factors Limiting Gait Function Decreased Activity Tolerance, Decreased Strength,Difficulty Following Directions,Limited Range of Motion,Pain,Poor Balance,Poor Safety Awareness Comments Gait Comments See mobility comments. PT-Balance Assessment Sitting Balance and Reactions Static Sitting Balance Ability Good Dynamic Sitting Balance Ability Fair Standing Balance and Reactions Static Standing Balance Ability Good Dynamic Standing Balance Ability Fair Device Used FWW M5 PT-IP Objective Assessments Start: 03/28/23 08:15 Freq: NEEDED Status: Active Protocol: Document 03/28/23 10:55 MB (Rec: 03/28/23 11:21 MB [id number]) Orientation Orientation/Cognition Level of Alertness Confusional State Orientation Name,Age,Birthday,Month,Year, Place,Situation Language Function Ability No Deficits Noted Safety Awareness Decreased Safety Awareness Memory Description Short Term Impaired,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 She is able to stand and take a few side steps with assistance on eval Sensation Assessment Sensation Gross Sensation WNL Comments Sensation Comments Pt cannot tolerate formal testing Muscle Tone Muscle Tone WNL Yes M6 PT-IP Treatment Start: 03/28/23 08:15 Freq: NEEDED Status: Active Protocol: Document 03/28/23 16:27 TS (Rec: 03/28/23 16:50 TS [id number]) Physical Therapy Treatment Education Education Provided Precautions,Weight Bearing Status,Post-Op Packet,Safety M7 PT-IP Assessment and Plan Start: 03/28/23 08:15 Freq: NEEDED Status: Active Protocol: Document 03/28/23 16:27 TS (Rec: 03/28/23 16:50 TS [id number]) PT Summary Assessment and Plan Potential Rehabilitation Potential Good Summary Impairments Pain,ROM,Strength,Balance, Cognition,Bed Mobility, Transfers,Gait,Activity Tolerance Progress Towards Goals Progressing Toward Goals Assessment Summary Shey is making progress with her mobility this session . She required decreased assist for supine to sit with Neetu for uprighting her trunk. She was impulsive to stand when therapist was not ready, required cues to stay seated. She performed sit to stand with decreased assist to CGA with FWW. She progressed her gait to ~100'CGA with FWW, had no buckling or LOB, did become fatigued after ~60' of gait. She is somewhat confused and is a poor historian. She lacks good safety awareness with her mobility and remains a high falls risk. Caregiver training was set up for tomorrow at 11:00AM with spouse, he was present for today's session. PT continues to recommend SNF at this time to progress strength, functional mobility and activity tolerance. Goals Bed Mobility Goal Standby Assistance Transfer Goal Standby Assistance,Front Wheeled Walker Gait Goal Standby Assistance,Front Wheel Walker Gait Distance 100 Other Goals Pt will ascend and descend at least 3 steps with rail and no more than SBA to allow home entrance. Days to Meet Goals 5 Frequency of Treatment Frequency Of Treatment Twice a Day Treatment Plan Physical Therapy Treatment Plan Bed Mobility Training,Transfer Training,Gait Training, Therapeutic Exercise,Balance Retraining,Post Op Education, Discharge Planning,Hot or Cold Pack Precautions Anterior Hip Precautions No Hip Extension,No Hip External Rotation Weight Bearing Status Weight Bearing Status Weight Bear as Tolerated Recommendations To Nursing Amount of Assist Needed 1 Person Assist Discharge Recommendations PT Discharge Recommendations SNF Rehab Transportation Needs at Discharge Wheelchair/Cabulance
[2023-03-28] MEDS: LACTATED RINGERS 1,000 ML 100 ML IV (17:08)
--- NOTE | 2023-03-28 17:33 | PC.NURSE ---
Small amount of oozing blood noted posterior to dressing this am. Surgeon informed, requested the small puncture to be covered in dermabond and tegaderm. Dressing has remained c/d/i since application.
[2023-03-29] MEDS: HYDROCODONE/ACET 5/325 TABLET 1 TAB PO ×3 (03:36→20:01)
[2023-03-29] MEDS: LACTATED RINGERS 1,000 ML 100 ML IV (03:40)
[2023-03-29 04:00] VITALS: BP 114/54; PULSE 85; RESP 17; TEMP 36.4; O2SAT 93
[2023-03-29] MEDS: ACETAMINOPHEN 325 MG TABLET 650 MG PO ×3 (06:37→17:41)
[2023-03-29] MEDS: PANTOPRAZOLE DR 20 MG TABLET PO (06:38)
[2023-03-29] MEDS: LEVOTHYROXINE 137 MCG TABLET PO (06:38)
[2023-03-29 07:00] VITALS: O2SAT 96
[2023-03-29 07:50] VITALS: BP 96/49; PULSE 76; RESP 18; TEMP 36.5; O2SAT 96
[2023-03-29] MEDS: ENOXAPARIN 30 MG/0.3 ML SYRINGE SUBCUT (08:35)
[2023-03-29] MEDS: ATORVASTATIN 20 MG TABLET 80 MG PO (08:35)
[2023-03-29] MEDS: DOCUSATE 100 MG CAPSULE PO ×2 (08:35→20:02)
[2023-03-29] MEDS: ASPIRIN EC 81 MG TABLET PO ×2 (08:35→20:01)
[2023-03-29] MEDS: buPROPion SR 100 MG TAB PO (08:36)
[2023-03-29] MEDS: VENLAFAXINE 37.5 MG TABLET 75 MG PO (08:36)
--- NOTE | 2023-03-29 08:51 | PM.PN.1 ---
Subjective Subjective Interval history: Some hip pain, but well controlled. She slept well. She denies any dyspnea or chest pain. She does accept that she needs a rehabilitation stay in a nursing facility. She lives with her . Exam Vital Signs (past 8 hours): - 03/29/23 04:00 03/29/23 07:50 Temperature 97.5 F L 97.7 F Pulse Rate 85 76 Respiratory Rate 17 18 Blood Pressure 114/54 L 96/49 L Pulse Oximetry 93 96 Oxygen Flow Rate 0 0 Oxygen Delivery Method Room Air Oxygen Flow Rate 0 Narrative Exam Narrative: She is doing well, no distress. Fluent speech. Lungs are clear, normal effort. Heart is regular, no murmur. Abdomen is soft, non-tender. Extremities are free of edema, skin is free of rash or lesions. Objective Labs 03/28/23 05:00 03/27/23 05:15 [facility] Social History household members: spouse Smoking Status: Never smoker alcohol intake: never Assessment & Plan Assessment & Plan narrative: 1. Right hip fracture status post ORIF. Physical therapy. [facility]. She is medically stable for discharge. 2. Metabolic encephalopathy, present on admission and improved. Follow clinically. 3. Essential hypertension, present on admission and stable. Continue chronic medications and follow. 4. Chronic vertigo, present on admission and stable. 5. Remote CVA, present on admission and stable. The patient will be on aspirin b.i.d. for 6 weeks for DVT prophylaxis and then resume aspirin 81 daily with her chronic statin with her history of CVA. Time Spent With Patient Time with patient: 30 to 49 minutes with 50% spent counseling/coordinating care
--- NOTE | 2023-03-29 10:55 | PT.IPTN ---
Current Diagnoses Metabolic encephalopathy (03/26/23) Essential (primary) hypertension (03/26/23) Repeated falls (03/26/23) Displaced intertrochanteric fracture of unspecified femur, initial encounter for closed fracture (03/26/23) Surgery Performed Operation Date: 03/27/23 22:15 Actual Procedures p Hip Hemiarthroplasty(Right) - Roland Silva MD Physical Therapy Treatment Note M2 PT-IP Current Condition Start: 03/28/23 08:15 Freq: NEEDED Status: Active Protocol: Document 03/28/23 10:55 MB (Rec: 03/28/23 11:21 MB [id number]) Physical Therapy Current Condition Current Condition Evaluation Date 03/28/23 Treatment Diagnosis GLF, right femoral neck fracture s/p anterior hemiarthroplasty Onset Date 03/27/23 M3 PT-IP Subjective Start: 03/28/23 08:15 Freq: NEEDED Status: Active Protocol: Document 03/29/23 12:00 TS (Rec: 03/29/23 12:21 TS [id number]) Subjective Physical Therapy Visit Type Type Treatment Note Visit Start Time 10:55 Visit Stop Time 11:35 Total Visit Minutes 40 Notes Spouse present for caregiver training Number of HOSPITAL ACCOUNT MANAGER Visits 2 Physical Therapy Visit Comments Patient Comments Pt found resting in chair, is tangential and requires redirection to relevant topics , denies any pain, is agreeable to PT. Therapy Pain Assessment Pain When Pain Assessed At Rest Pain Present Pain Present Denied Pain M4 PT-IP Mobility and Gait Start: 03/28/23 08:15 Freq: NEEDED Status: Active Protocol: Document 03/29/23 12:00 TS (Rec: 03/29/23 12:21 TS [id number]) PT-Transfer Assessment Sit to and From Stand Sit to and from Stand Minimal Assistance,1 Person Assistance,Use of Upper Extremities Equipment Transfer Assistive Device Gait Belt,Front Wheeled Walker Orthotic/Prosthetic Devices or Brace: No Comments Mobility Comments Spouse was instructed in and performed donning of gait belt prior to mobility. Sit to stand from chair Neetu from spouse to come into standing, pt required cues for BUE support pushing from arms of chair. She ambulated ~150'Neetu for FWW management, pt tends to drift to L into gonzáles, reports fatigue after ~100', spouse was educated on proper handplacement on gait belt. She performed stairs x6 with single rail and handheld assist from spouse Neetu and max cues, pt and spouse require constant cueing for proper step sequencing on steps. Pt back in room, stand to sit into chair Neetu and cues for BUE support on arms of chair for slow control into chair. Pt was left in room with spouse, chair alarm on, all needs met. Gait Assessment Gait Gait Assistance Required: Minimum Assistance,1 Person Assist Distance (Feet) 150 Able to Maintain Weight Bearing Status Yes During Gait Assistive Devices Assistive Device Gait Belt,Standard Walker Orthotic/Prosthetic Devices or Brace: No Gait Deviations General Gait Pattern Antalgic,Decreased Stride Length,Decreased Feet Clearance,Flexed Trunk Factors Limiting Gait Function Factors Limiting Gait Function Decreased Activity Tolerance, Decreased Strength,Difficulty Following Directions,Limited Range of Motion,Pain,Poor Balance,Poor Safety Awareness Comments Gait Comments See mobility comments. Stair Climbing Assessment Evaluation Level of Assist On Stairs Minimal Assistance,1 Person Assistance Devices Stair Climbing Assistive Devices Left Railing Technique/Endurance Stair Climbing Direction Ascend and Descend Stair Climbing Technique Step to Step Number of Steps Climbed 6 Comments Stair Climbing Comments Pt has difficulty recalling propr step sequencing. She required cues for ascending with non-surgical side and descending surgical and proper handplacement on rails. Spouse had some difficulty cueing pt with steps, therapist required to give cues. PT-Balance Assessment Sitting Balance and Reactions Static Sitting Balance Ability Good Dynamic Sitting Balance Ability Fair Standing Balance and Reactions Static Standing Balance Ability Good Dynamic Standing Balance Ability Fair Device Used FWW M5 PT-IP Objective Assessments Start: 03/28/23 08:15 Freq: NEEDED Status: Active Protocol: Document 03/28/23 10:55 MB (Rec: 03/28/23 11:21 MB [id number]) Orientation Orientation/Cognition Level of Alertness Confusional State Orientation Name,Age,Birthday,Month,Year, Place,Situation Language Function Ability No Deficits Noted Safety Awareness Decreased Safety Awareness Memory Description Short Term Impaired,Group Home Impaired Gross Range of Motion Upper Extremity ROM Impairments Defer to OT Lower Extremity ROM Assessment Right Impaired Impairments Pt does not follow right LE range and strength testing commands Strength Lower Extremity Strength Assessment Right Impaired Comments Strength Comments Pt with functional weakness right LE and she does not follow testing commands today. She is able to stand and take a few side steps with assistance on eval Sensation Assessment Sensation Gross Sensation WNL Comments Sensation Comments Pt cannot tolerate formal testing Muscle Tone Muscle Tone WNL Yes M6 PT-IP Treatment Start: 03/28/23 08:15 Freq: NEEDED Status: Active Protocol: Document 03/29/23 12:00 TS (Rec: 03/29/23 12:21 TS [id number]) Physical Therapy Treatment Education Education Provided Precautions,Weight Bearing Status,Post-Op Packet,Safety M7 PT-IP Assessment and Plan Start: 03/28/23 08:15 Freq: NEEDED Status: Active Protocol: Document 03/29/23 12:00 TS (Rec: 03/29/23 12:21 TS [id number]) PT Summary Assessment and Plan Potential Rehabilitation Potential Good Summary Impairments Pain,ROM,Strength,Balance, Cognition,Bed Mobility, Transfers,Gait,Activity Tolerance Progress Towards Goals Progressing Toward Goals Assessment Summary Shey is making progress with her mobility this session . She is Neetu for sit to stand from lower surface of chair. She didn't demonstrate carryover of proper sit to stand technique, she required cues for BUE support. She did progress her gait to ~150'Neetu , she tends to drift to L side into gonzáles due to becoming distracted and requires cues to stay on task. She performed stairs x6 Neetu with max cues. Pt could not recall proper step sequencing and spouse had some difficulty cueing pt. She continues to have poor memory and is very forgetful. She requires redirection to tasks due to being easily distracted. She remains a high falls risk due to poor safety awareness. PT continues to recommend SNF rehab at this time to progress strength, funcitonal mobility and gait. Pt is agreeable to go to SNF. Goals Bed Mobility Goal Standby Assistance Transfer Goal Standby Assistance,Front Wheeled Walker Gait Goal Standby Assistance,Front Wheel Walker Gait Distance 100 Other Goals Pt will ascend and descend at least 3 steps with rail and no more than SBA to allow home entrance. Days to Meet Goals 5 Frequency of Treatment Frequency Of Treatment Twice a Day Treatment Plan Physical Therapy Treatment Plan Bed Mobility Training,Transfer Training,Gait Training, Therapeutic Exercise,Balance Retraining,Post Op Education, Discharge Planning,Hot or Cold Pack Precautions Anterior Hip Precautions No Hip Extension,No Hip External Rotation Weight Bearing Status Weight Bearing Status Weight Bear as Tolerated Recommendations To Nursing Amount of Assist Needed 1 Person Assist Discharge Recommendations PT Discharge Recommendations SNF Rehab Transportation Needs at Discharge Wheelchair/Cabulance
[2023-03-29 11:51] LABS: Add Manual Diff / Slide Review NO; Basophils Absolute Auto 100 /uL (0-100); Basophils Percent Auto 0.7 % (0-2); Eosinophils Absolute Auto 200 /uL (0-450); Eosinophils Percent Auto 1.9 % (2-4); Hematocrit 25.9 % (36-46); Hemoglobin 8.6 g/dL (12.0-16.0); Lymphocytes Absolute Auto 1300 /uL (1100-4500); Lymphocytes Percent Auto 14.3 % (25-40); Mean Corpuscular HGB Conc 33.3 % (30-36); Mean Corpuscular Hemoglobin 31.7 PG (26-34); Mean Corpuscular Volume 95.1 fL (80-100); Monocytes Absolute Auto 500 /uL (0-900); Monocytes Percent Auto 5.2 % (3-14); Neutrophils Absolute Auto 7200 /uL (1500-7000); Neutrophils Percent Auto 77.9 % (50-75); Platelet Count 223 X10^3/uL (150-400); Red Blood Cell Count 2.72 X10^6/uL (4.0-5.2); Red Cell Distribution Width 14.1 % (11.6-14.8); White Blood Cell Count 9.3 X10^3/uL (4.5-11.0)
[2023-03-29 12:07] LABS: BUN Creatinine Ratio 20.4 (6-22); Blood Urea Nitrogen 22 mg/dL (7-17); Calcium 8.6 mg/dL (8.4-10.2); Carbon Dioxide 24 mmol/L (22-32); Chloride 105 mmol/L (98-107); Estimated Glomerular Filt Rate 51 mL/min (>60); Glucose 141 mg/dL (80-110); HEMOLYSIS < 15 (0-50); Potassium 4.3 mmol/L (3.4-5.1); Sodium 135 mmol/L (137-145)
--- NOTE | 2023-03-29 13:03 | CM.DPNOTE ---
DCP Note Met w/patient and spouse to review discharge plan. Discussed recommendation for SNF. patient says she was hopeful to return home with her but understands this is not the safest plan at this time. Reviewed SNF choices and patient/spouse are hopeful for [facility]. [facility]. [facility]. Agreeable to referrals to [facility], [facility] and [facility] as well. [facility] does not take [facility], neither will [facility]. Attempted contact w/[facility] and have not heard back. Historically, [facility] has not had a contract w[facility]. Discussed this case with Alyssa at [facility] and she accepted patient for admission. Furthermore, [employer] gave the SNF auth very quickly Auth # [id number]. [facility] cannot accept for admission today and not expected tomorrow either. They have bed availability Saturday but there is no cabulance running on Sundays so patient would need to either transport via private auto vs BLS ( none of those are appropriate options). Patient's discharge to SNF will likely be delayed until Saturday r/t SNF bed availability and transportation need. CM team will follow closely in case discharge can be coordinated before Saturday. PASRR completed. EVELINE
--- NOTE | 2023-03-29 14:52 | PM.PNPO.1 ---
Subjective Subjective Date Patient Seen: 03/29/23 Time Patient Seen: 14:52 Interval history: Patient's pain is mild. Denies fever or chills. No nausea or vomiting. Patient states she feels like she fatigues easily when she is working with physical therapy. Patient lives with her . Exam Vital Signs (past 8 hours): - 03/29/23 07:00 03/29/23 07:50 Temperature 97.7 F Pulse Rate 76 Respiratory Rate 18 Blood Pressure 96/49 L Pulse Oximetry 96 96 Oxygen Delivery Method Room Air Oxygen Flow Rate 0 0 Oxygen Delivery Method Room Air Oxygen Flow Rate 0 Narrative Exam Narrative: 82-year-old female resting comfortably in bedside chair in no apparent distress. Right hip dressing is clean, dry and intact. Motor functions intact bilateral lower extremities. Sensation grossly intact to light touch bilateral lower extremities. Const General: cooperative and comfortable Nutritional Appearance: average body habitus Orientation: alert Resp Effort & Inspection: normal respiratory effort and able to speak in complete sentences Objective Labs 03/29/23 11:41 03/29/23 11:41 Labs: Laboratory Results - last 24 hr 03/29/23 11:41 WBC 9.3 RBC 2.72 L Hgb 8.6 L Hct 25.9 L MCV 95.1 MCH 31.7 MCHC 33.3 RDW 14.1 Plt Count 223 Neut % (Auto) 77.9 H Lymph % (Auto) 14.3 L [place] % (Auto) 5.2 Eos % (Auto) 1.9 L Baso % (Auto) 0.7 Neut # (Auto) 7200 H Lymph # (Auto) 1300 [place] # (Auto) 500 Eos # (Auto) 200 Baso # (Auto) 100 Sodium 135 L Potassium 4.3 Chloride 105 Carbon Dioxide 24 BUN 22 H Creatinine 1.08 H Estimated GFR 51 L BUN/Creatinine Ratio 20.4 Glucose 141 H Calcium 8.6 PFSH Social History household members: spouse Smoking Status: Never smoker alcohol intake: never Assessment & Plan Post-op Postoperative Procedures: Procedures Operation Date: 03/27/23 22:15 Actual Procedure Side Surgeon p Hip Hemiarthroplasty Right Roland Silva MD Postoperative day: 2 Postoperative status narrative: Patient improving status post right hemiarthroplasty Anemia likely due to acute blood loss during surgery, HH up today. Postoperative plan narrative: Mobilize with physical therapy, weight-bearing as tolerated Multimodal pain management Aspirin for DVT prophylaxis Follow up ortho 2 weeks for wound check Disposition likely [facility], authorization pending
--- NOTE | 2023-03-29 14:55 | PT.IPTN ---
Current Diagnoses Metabolic encephalopathy (03/26/23) Essential (primary) hypertension (03/26/23) Repeated falls (03/26/23) Displaced intertrochanteric fracture of unspecified femur, initial encounter for closed fracture (03/26/23) Surgery Performed Operation Date: 03/27/23 22:15 Actual Procedures p Hip Hemiarthroplasty(Right) - Roland Silva MD Physical Therapy Treatment Note M2 PT-IP Current Condition Start: 03/28/23 08:15 Freq: NEEDED Status: Active Protocol: Document 03/28/23 10:55 MB (Rec: 03/28/23 11:21 MB [id number]) Physical Therapy Current Condition Current Condition Evaluation Date 03/28/23 Treatment Diagnosis GLF, right femoral neck fracture s/p anterior hemiarthroplasty Onset Date 03/27/23 M3 PT-IP Subjective Start: 03/28/23 08:15 Freq: NEEDED Status: Active Protocol: Document 03/29/23 15:20 TS (Rec: 03/29/23 15:37 TS [id number]) Subjective Physical Therapy Visit Type Type Treatment Note Visit Start Time 14:55 Visit Stop Time 15:18 Total Visit Minutes 23 Notes Family in room 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 Pt is agreeable to PT. Therapy Pain Assessment Pain When Pain Assessed At Rest Pain Present Pain Present Denied Pain M4 PT-IP Mobility and Gait Start: 03/28/23 08:15 Freq: NEEDED Status: Active Protocol: Document 03/29/23 15:20 TS (Rec: 03/29/23 15:37 TS [id number]) PT-Transfer Assessment Sit to and From Stand Sit to and from Stand Minimal Assistance,1 Person Assistance,Use of Upper Extremities Equipment Transfer Assistive Device Gait Belt,Front Wheeled Walker Orthotic/Prosthetic Devices or Brace: No Comments Mobility Comments Sit to stand from chair Neetu, pt demonstrated carryover of sit to stand sequencing with minimal cue. She ambulated in hallway ~150'CGA with step to gait and FWW, reported some increased discomfort in RLE, had no buckling or LOB. She stood for rest break ~1 min in FWW and ambulated back to room. pt sat back in chair, reported concern about bruising on inside of R knee, RN was notified. Pt was left in chair, all needs met, chair alarm on. Gait Assessment Gait Gait Assistance Required: Contact Guard Assist,1 Person Assist Distance (Feet) 150 Able to Maintain Weight Bearing Status Yes During Gait Assistive Devices Assistive Device Gait Belt,Standard Walker Orthotic/Prosthetic Devices or Brace: No Gait Deviations General Gait Pattern Antalgic,Decreased Stride Length,Decreased Feet Clearance,Flexed Trunk Factors Limiting Gait Function Factors Limiting Gait Function Decreased Activity Tolerance, Decreased Strength,Difficulty Following Directions,Limited Range of Motion,Pain,Poor Balance,Poor Safety Awareness Comments Gait Comments See mobility comments. PT-Balance Assessment Sitting Balance and Reactions Static Sitting Balance Ability Good Dynamic Sitting Balance Ability Fair Standing Balance and Reactions Static Standing Balance Ability Good Dynamic Standing Balance Ability Fair Device Used FWW M5 PT-IP Objective Assessments Start: 03/28/23 08:15 Freq: NEEDED Status: Active Protocol: Document 03/28/23 10:55 MB (Rec: 03/28/23 11:21 MB [id number]) Orientation Orientation/Cognition Level of Alertness Confusional State Orientation Name,Age,Birthday,Month,Year, Place,Situation Language Function Ability No Deficits Noted Safety Awareness Decreased Safety Awareness Memory Description 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 She is able to stand and take a few side steps with assistance on eval Sensation Assessment Sensation Gross Sensation WNL Comments Sensation Comments Pt cannot tolerate formal testing Muscle Tone Muscle Tone WNL Yes M6 PT-IP Treatment Start: 03/28/23 08:15 Freq: NEEDED Status: Active Protocol: Document 03/29/23 15:20 TS (Rec: 03/29/23 15:37 TS [id number]) Physical Therapy Treatment Education Education Provided Precautions,Weight Bearing Status,Post-Op Packet,Safety M7 PT-IP Assessment and Plan Start: 03/28/23 08:15 Freq: NEEDED Status: Active Protocol: Document 03/29/23 15:20 TS (Rec: 03/29/23 15:37 TS [id number]) PT Summary Assessment and Plan Potential Rehabilitation Potential Good Summary Impairments Pain,ROM,Strength,Balance, Cognition,Bed Mobility, Transfers,Gait,Activity Tolerance Progress Towards Goals Progressing Toward Goals Assessment Summary Shey continues to make progress with her mobility. She performed sit to stand x1 Neetu, she demonstrated good carryover of squencing for sit to stand. She continued to ambulate ~150'CGA, she easily becomes distracted and requires redirection to tasks. She continues to lack good safety awareness and requires max cueing for most mobility. PT continues to recommend SNF to progress functional mobility and gait. Goals Bed Mobility Goal Standby Assistance Transfer Goal Standby Assistance,Front Wheeled Walker Gait Goal Standby Assistance,Front Wheel Walker Gait Distance 100 Other Goals Pt will ascend and descend at least 3 steps with rail and no more than SBA to allow home entrance. Days to Meet Goals 5 Frequency of Treatment Frequency Of Treatment Twice a Day Treatment Plan Physical Therapy Treatment Plan Bed Mobility Training,Transfer Training,Gait Training, Therapeutic Exercise,Balance Retraining,Post Op Education, Discharge Planning,Hot or Cold Pack Precautions Anterior Hip Precautions No Hip Extension,No Hip External Rotation Weight Bearing Status Weight Bearing Status Weight Bear as Tolerated Recommendations To Nursing Amount of Assist Needed 1 Person Assist Discharge Recommendations PT Discharge Recommendations SNF Rehab Transportation Needs at Discharge Wheelchair/Cabulance
[2023-03-29 15:00] VITALS: BP 105/53; PULSE 73; RESP 19; TEMP 36.1; O2SAT 94
--- NOTE | 2023-03-29 15:37 | OT.IPNOTE ---
Pt wanting to take a nap as tired from working with PT. Able to talk to pt about skilled rehab what to expect and questions to ask. No charge
[2023-03-29 19:00] VITALS: O2SAT 93
[2023-03-29] MEDS: ONDANSETRON 4 MG ODT PO (20:21)
[2023-03-29] MEDS: CALCIUM CARBONATE 500 MG TAB PO (22:27)
[2023-03-29 23:00] VITALS: BP 142/66; PULSE 90; RESP 16; TEMP 37.3; O2SAT 93
[2023-03-30] MEDS: PANTOPRAZOLE DR 20 MG TABLET PO (05:16)
[2023-03-30] MEDS: ACETAMINOPHEN 325 MG TABLET 650 MG PO ×2 (05:16→10:49)
[2023-03-30] MEDS: LEVOTHYROXINE 137 MCG TABLET PO (05:16)
[2023-03-30 07:00] VITALS: O2SAT 96
[2023-03-30 07:35] VITALS: BP 115/53; PULSE 84; RESP 19; TEMP 37.4; O2SAT 96
[2023-03-30] MEDS: DOCUSATE 100 MG CAPSULE PO (08:17)
[2023-03-30] MEDS: ASPIRIN EC 81 MG TABLET PO (08:17)
[2023-03-30] MEDS: ATORVASTATIN 20 MG TABLET 80 MG PO (08:17)
[2023-03-30] MEDS: ENOXAPARIN 30 MG/0.3 ML SYRINGE SUBCUT (08:17)
[2023-03-30] MEDS: VENLAFAXINE ER 75 MG CAP PO (08:17)
[2023-03-30] MEDS: buPROPion SR 100 MG TAB PO (08:17)
--- NOTE | 2023-03-30 08:25 | PM.PN.1 ---
Exam Vital Signs (past 8 hours): - 03/30/23 07:35 Temperature 99.4 F Pulse Rate 84 Respiratory Rate 19 Blood Pressure 115/53 L Pulse Oximetry 96 Oxygen Delivery Method Room Air Oxygen Flow Rate 0 Objective Labs 03/29/23 11:41 03/29/23 11:41 Labs: Laboratory Results - last 24 hr 03/29/23 11:41 WBC 9.3 RBC 2.72 L Hgb 8.6 L Hct 25.9 L MCV 95.1 MCH 31.7 MCHC 33.3 RDW 14.1 Plt Count 223 Neut % (Auto) 77.9 H Lymph % (Auto) 14.3 L [place] % (Auto) 5.2 Eos % (Auto) 1.9 L Baso % (Auto) 0.7 Neut # (Auto) 7200 H Lymph # (Auto) 1300 [place] # (Auto) 500 Eos # (Auto) 200 Baso # (Auto) 100 Sodium 135 L Potassium 4.3 Chloride 105 Carbon Dioxide 24 BUN 22 H Creatinine 1.08 H Estimated GFR 51 L BUN/Creatinine Ratio 20.4 Glucose 141 H Calcium 8.6 PFSH Social History household members: spouse Smoking Status: Never smoker alcohol intake: never Assessment & Plan Assessment & Plan narrative: 1. Right hip fracture status post ORIF. Physical therapy. [facility]. She is medically stable for discharge. 2. Metabolic encephalopathy, present on admission and improved. Follow clinically. 3. Essential hypertension, present on admission and stable. Continue chronic medications and follow. 4. Chronic vertigo, present on admission and stable. 5. Remote CVA, present on admission and stable. The patient will be on aspirin b.i.d. for 6 weeks for DVT prophylaxis and then resume aspirin 81 daily with her chronic statin with her history of CVA.
[2023-03-30] MEDS: ONDANSETRON 4 MG ODT PO (09:30)
--- NOTE | 2023-03-30 16:36 | CM.DPNOTE ---
DCP continued: [employer] reviewed EMR. Per provider, patient safe to d/c to SNF today. [employer] spoke with Alyssa, confirmed cabulance to be here at 1030 for pu. Confirmed [employer] auth. [employer] spoke with spouse Darrell over the phone. Confirms verbal understanding and acceptance of d/c plan. [employer] entered room and introduced self and role. Patient reports verbal understanding of d/c plan. Reports upset due to it being so far from home but understands it is safest for her not to d/c home. [employer] answered family questions regarding HH when patient d/c from [facility]. [employer] provided patient with copy of IMM paperwork. [employer] faxed copy of PASSR and signed med list to [facility]. [employer] placed signed med list and PASSR with RN. [employer] provided RN with nursing report number. After patient d/c'd, provider handed hard script for med. [employer] spoke with Alyssa Frost asked this [employer] fax it to [phone]. [employer] faxed copy of hard script. Plan: patient d/c'd to [facility] via cabulance. CM team will continue to follow as needed. SCOTT Flynn
--- NOTE | 2023-03-30 19:15 | PM.DS.1 ---
History of Present Illness History of Present Illness Date Patient Seen: 03/30/23 Chief complaint: right femoral neck Narrative: The pt is a 82 yo who has frequent falls at home who fell today , landing on her hip fracturing it. Trena was brought to [facility] for evaluation which I do not have the records available to me. Due to the fracture, she was transfered to our hospital for orthopedic repair. jessica Meléndez is aware of the pt and will see in the AM, we are to keep pt NPO for possible surgery in the AM. The pt was obtunded during my exam and the nurses report that she has been very difficult to arouse since arrival. She is moving her extremities spontaneously but not responding to questions Discharge Providers Provider Date of admission: 03/26/23 20:09 Discharge Date: 03/30/23 Consults: 03/27/23 09:33 Consult to Orthopedic Surgery Routine Comment: Consulting Provider: Roland Silva Reason for consultation: femur fracture Has provider been notified: Yes 03/27/23 22:47 Consult to Discharge Planning Routine Comment: Consult to Occupational Therapy Evaluate & Treat Comment: Physician Instructions: Evaluate and treat Consult to Physical Therapy Evaluate & Treat Comment: Physician Instructions: post op FEDE protocol Discharge provider: Ede Mosqueda MD Summary Hospital Course Hospital Course: 1. Right hip fracture status post ORIF. Physical therapy. Discharged to [facility] [place]. She is medically stable for discharge. 2. Metabolic encephalopathy, present on admission and improved. 3. Essential hypertension, present on admission and stable. Continue chronic medications and follow. 4. Chronic vertigo, present on admission and stable. 5. Remote CVA, present on admission and stable. 6. Blood Loss Anemia The patient will be on aspirin b.i.d. for 6 weeks for DVT prophylaxis and then resume aspirin 81 daily with her chronic statin with her history of CVA. Status at Discharge Cognitive/behavioral status at discharge: oriented Functional status at discharge: uses cane/walker Overall status at discharge: patient is progressing back to baseline Exam Vital Signs (past 8 hours): Oxygen Delivery Method Room Air Oxygen Flow Rate 0 Narrative Exam Narrative: She is alert and oriented x3. She is resistant to a rehab assisted facility stay but is ultimately willing to go. Heart is regular rate and rhythm without murmur Lungs are clear to auscultation bilaterally Extremities have no ankle edema Her hemoglobin is stable at 8.6. The creatinine has improved to 1.08. Objective Labs 03/29/23 11:41 03/29/23 11:41 [facility] Medical History (Updated 03/30/23 @ 19:18 by Ede Mosqueda MD) CVA (cerebral vascular accident) Essential hypertension Blood loss anemia Social History household members: spouse Smoking Status: Never smoker alcohol intake: never Discharge Plan Discharge Plan Patient Disposition: SNF Transfer to: [facility] Under care of provider: Carmelo Hernandez orders & Medications Prescriptions: New acetaminophen 325 mg Tablet 650 mg PO Q6H Qty: 30 0RF pantoprazole 20 mg Tablet,Delayed Release (Dr/Ec) 20 mg PO 0600 Qty: 7 0RF hydrocodone-acetaminophen 5-325 mg Tablet 1 tab PO Q4H PRN (Reason: Pain, Moderate (4-6)) Qty: 20 0RF Continued atorvastatin 80 mg tablet 80 mg PO DAILY bupropion HCl 100 mg tablet sustained-release 12 hr 100 mg PO DAILY gabapentin 300 mg capsule 300 mg PO TID levothyroxine 137 mcg tablet 137 mcg PO DAILY lisinopril 5 mg tablet 10 mg PO DAILY nitroglycerin 0.4 mg tablet, sublingual 0.4 mg sublingual [id number] PRN (Reason: angina) tolterodine 1 mg tablet 1 - 2 mg PO BID aspirin 81 mg Tablet 81 mg PO DAILY venlafaxine 75 mg Tablet 75 mg PO DAILY atenolol 25 mg Tablet 25 mg PO DAILY mirabegron 25 mg PO DAILY amlodipine 5 mg Tablet 5 mg PO DAILY cholecalciferol (vitamin D3) 25 mcg (1,000 unit) Capsule 25 mcg PO DAILY Discontinued oxybutynin chloride 5 mg tablet 5 mg PO DAILY Follow up/Referrals: Roland Silva MD [Physician] - 2 Weeks (Follow up w/ ASHKAN in 2 weeks for wound check. Follow up w/ Dr Silva in 6 weeks for re-imaging.) Diet/Activity/Treatments Diet: Regular Liquid consistency: Normal/Thin Food texture: Regular Activity: Weightbearing as tolerated to right leg. Anterior hip precautions x 6 weeks. Skin/Wound/Dressing Care Dressing: May shower. Leave Aquacel dressing in place until follow up w/ orthopedics. No bathing or otherwise soaking incision. Call ortho office if dressing becomes saturated. [facility] Rehab type: Physical therapy and Occupational therapy Visit Report/Discharge Packet Instructions: DI for Hip Replacement Stand Alone Forms: Patient Portal/API, Surgery Discharge
== END 2023-03-30 10:55 | DRG 521 ==
PROVIDERS: Hospitalist; Internal Medicine; Orthopaedic Surgery Adult Reconstructive Orthopaedic Surgery; Admitting Provider Internal Medicine; Referring Provider Internal Medicine; Visit Provider Internal Medicine
PROC: 0SRR0JZ Replacement of Right Hip Joint, Femoral Surface with Synthetic Substitute, Open Approach (ICD-10-PCS; CPT 27125; principal; 2023-03-27 22:15)
DX: S72.141A Displaced intertrochanteric fracture of right femur, initial encounter for closed fracture (principal); G93.41 Metabolic encephalopathy; R29.6 Repeated falls; I10 Essential (primary) hypertension; R42 Dizziness and giddiness; W18.30XA Fall on same level, unspecified, initial encounter; Z95.1 Presence of aortocoronary bypass graft; Z86.73 Personal history of transient ischemic attack (TIA), and cerebral infarction without residual deficits
CPT/HCPCS: 36415; 73502; 76000; 80048; 82962; 85014; 85018; 85025; 97116; 97162; 97166; 97530; 97535; C1776; C1713; J0131; J0171; J0690; J1650; J2310; J2405; J2704; J3010